=== PATIENT | male | born 1925 | race Caucasian/White ===

== ENCOUNTER → 2017-01-20 | Outpatient (REF) | payer MEDICARE, OTHER ==
[~2017-01-20] MED LIST: /ATOR40TA OR; ACTO45TA OR; ALLO100T OR; AMLO10TA OR; ASPI325T OR; ASPI81TA83 OR; ATEN50TA2 OR; CHLORTHALIDONE OR; CHLORTHALIDONE PO; CLIN300C OR; DIOV320T OR; EYE VITAMIN OR; EYE VITE PO; EYECAP PO; GLIP5TAB77 OR; GLIP5TAB8 PO; GLUC1000 OR; LASI20TA OR; LASI20TA PO; LEVO25TA5 PO; LIPI10TA OR; LISI20TA5 OR; MED FOR GERD PO; METF1000 PO; NORV5TAB PO; OMEP20TA7 OR; PROP120C OR; TRUSOPT OU; VICO5TAB OR; VITAMIN D OR; VITAMIN D PO; XALATAN; [UNRECOGNIZED DRUG - CODE] OR
[2017-01-20 14:26] LABS: MEAN CORPUSCULAR HEMOGLOBIN 28.6 pg (27.0-33.0); MEAN CORPUSCULAR HGB CONC 32.2 g/dl (32.0-36.5); MEAN CORPUSCULAR VOLUME 88.9 fl (80.0-96.0); WHITE BLOOD COUNT 6.2 K/mm3 (4.0-10.0)
[2017-01-20 15:05] LABS: ALBUMIN 3.6 GM/DL (3.2-5.2); ALBUMIN/GLOBULIN RATIO 1.2 (1.00-1.93); BILIRUBIN,TOTAL 0.5 MG/DL (0.2-1.0); CALCIUM LEVEL 10.4 MG/DL (8.8-10.2); CREATININE FOR GFR 1.84 MG/DL (0.70-1.30); FREE T4 0.89 NG/DL (0.76-1.46); GLOMERULAR FILTRATION RATE 37.1 (>35); TOTAL PROTEIN 6.6 GM/DL (6.4-8.2)
[2017-01-20 15:08] LABS: POTASSIUM SERUM 5.2 MEQ/L (3.5-5.1)
== END ==
LOC: M SFHCADAM 07:58
PROVIDERS: ATTEND Physician Assistant
DX: N18.4 Chronic kidney disease, stage 4 (severe) (principal); E03.9 Hypothyroidism, unspecified; E11.65 Type 2 diabetes mellitus with hyperglycemia

== ENCOUNTER 2017-02-06 11:33 | Inpatient (IN) | payer MEDICARE, OTHER ==
[~2017-02-06] VITALS: Ht 182.9 cm; Wt 84.6 kg
[2017-02-06] MEDS ORDERED: TRAD5TAB PO (11:49)
[2017-02-06] MEDS ORDERED: METF500T PO (11:49)
[2017-02-06] MEDS ORDERED: LASI20TA PO (11:49)
[2017-02-06] MEDS ORDERED: NS 1,000 ML IV SCH (12:24)
[2017-02-06 13:35] LABS: EOS # 0.1 K/mm3 (0.0-0.50); EOS % 0.5 % (0.0-3.0); LARGE UNSTAINED CELL # 0.1 K/mm3 (0.0-0.4); LARGE UNSTAINED CELL % 1.2 % (0.0-4.0); LYMPH # 0.9 K/mm3 (1.5-4.5); LYMPH % 6.4 % (24.0-44.0); MEAN CORPUSCULAR HEMOGLOBIN 28.2 pg (27.0-33.0); MEAN CORPUSCULAR HGB CONC 32.5 g/dl (32.0-36.5); MEAN CORPUSCULAR VOLUME 86.7 fl (80.0-96.0); MONO # 0.7 K/mm3 (0.0-0.8); MONO % 6.1 % (0.0-5.0); NEUTROPHILS # 9.7 K/mm3 (1.8-7.7); NEUTROPHILS % 85.8 % (36.0-66.0); PLATELET COUNT, AUTOMATED 222 k/mm3 (150-450); RED CELL DISTRIBUTION WIDTH 12.9 % (11.5-14.5); WHITE BLOOD COUNT 11.3 K/mm3 (4.0-10.0)
[2017-02-06 13:56] LABS: ALBUMIN 3.2 GM/DL (3.2-5.2); ALBUMIN/GLOBULIN RATIO 0.91 (1.00-1.93); ALKALINE PHOSPHATASE 98 U/L (45-117); ALT/SGPT 46 U/L (12-78); ANION GAP 12 MEQ/L (8-16); AST/SGOT 41 U/L (15-37); BILIRUBIN,DIRECT 0.5 MG/DL (0.0-0.2); BILIRUBIN,TOTAL 1.2 MG/DL (0.2-1.0); BLOOD UREA NITROGEN 58 MG/DL (7-18); CALCIUM LEVEL 10.6 MG/DL (8.8-10.2); CARBON DIOXIDE LEVEL 25 MEQ/L (21-32); CHLORIDE LEVEL 95 MEQ/L (98-107); CREATININE FOR GFR 2.49 MG/DL (0.70-1.30); GLOMERULAR FILTRATION RATE 26.1 (>35); GLUCOSE, FASTING 337 MG/DL (83-110); POTASSIUM SERUM 4.4 MEQ/L (3.5-5.1); SODIUM LEVEL 132 MEQ/L (136-145); TOTAL PROTEIN 6.7 GM/DL (6.4-8.2)
--- NOTE | 2017-02-06 14:03 | REP ---
Noncontrast head CT: History: Altered mental status. Findings: Digital lateral lens blocker radiograph is unremarkable. Bone window settings demonstrate an intact bony calvarium. Visualized paranasal sinuses are clear. There is some vascular calcification in the distal carotid arteries bilaterally. On soft tissue window settings there is moderate diffuse cerebral atrophy and periventricular white matter low density consistent with small vessel changes. There is no evidence of acute infarction. 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 No acute cortical infarction or white matter for infarct is seen. No hemorrhage is noted. No extra-axial fluid collection or mass is seen. 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 No acute intracranial abnormality. Signed by Jose Epps MD 02/06/2017 03:13 P
[2017-02-06] MEDS ORDERED: CIPROFLOXACIN 400 MG in APPROPRIATE DILUENT 1 EA IV ONE (14:30)
--- NOTE | 2017-02-06 14:41 | REP ---
PORTABLE CHEST: 02/06/2017. Comparison: 04/12/2014, 12/24/2010. Clinical history: Altered mental status. Findings: EKG leads overlie the chest. There are minor interstitial changes in the bases without acute infiltrate, pleural effusion or parenchymal lung mass. The heart is not enlarged. The aorta is calcified and tortuous but without aneurysm. Airway is intact. No mediastinal or hilar widening. Pulmonary arteries are mildly prominent. There are degenerative changes in the AC and glenohumeral joints. Impression: 1. Some minor basilar fibrotic change without acute infiltrate, effusion or atelectasis. Pulmonary artery hypertension noted likely on the basis of COPD.2. Calcified mildly tortuous aorta without aneurysm. Signed by Omar Hernandez MD 02/06/2017 03:07 P
[2017-02-06] MEDS ORDERED: TYLE500T78 PO (15:12)
[2017-02-06] MEDS ORDERED: VITA-112 PO (15:12)
[2017-02-06] MEDS ORDERED: EYECAP PO (15:12)
[2017-02-06] MEDS ORDERED: [UNRECOGNIZED DRUG - CODE] SC (15:12)
[2017-02-06] MEDS ORDERED: GLIP5TAB15 PO (15:12)
[2017-02-06] MEDS ORDERED: LEVO75TA34 PO (15:12)
[2017-02-06] MEDS ORDERED: VITMTA PO (15:12)
[2017-02-06] MEDS ORDERED: OMEP20CA3 PO (15:12)
[2017-02-06] MEDS ORDERED: ATOR1TAB19 PO (15:12)
[2017-02-06] MEDS ORDERED: ASPI1TAB PO (15:12)
[2017-02-06] MEDS ORDERED: FURO40TA2 PO (15:12)
[2017-02-06] MEDS ORDERED: AMLO2.5T PO (15:12)
[2017-02-06] MEDS ORDERED: DEXTROSE 50% 50 ML SYRINGE IV PRN (15:30)
[2017-02-06] MEDS ORDERED: GLUCAGON FOR INJ 1 MG VIAL (J1610) SC PRN (15:30)
[2017-02-06] MEDS ORDERED: GLUCOSE 4 GM CHEW TABLET PO PRN (15:30)
[2017-02-06 16:10] VITALS: BP 135/74
[2017-02-06] MEDS: NS 1,000 ML IV SCH ×2 (16:27→21:53)
[2017-02-06] MEDS: cefTRIAXone SOD 1 GM in D5W MINI-BAG PLUS 50 ML IV SCH (16:27)
[2017-02-06] MEDS: HumaLOG INSULIN (NovoLOG) PER UNIT SC SCH ×2 (18:00→21:00)
[2017-02-06] MEDS ORDERED: FUROSEMIDE 20 MG TAB PO PRN (19:15)
--- NOTE | 2017-02-06 20:20 | HPE ---
DATE OF ADMISSION: 02/06/2017 REASON FOR ADMISSION: Weakness, urinary tract infection (UTI). PRIMARY CARE PROVIDER: Priscila Mejias. HISTORY OF PRESENT ILLNESS: Patient is an 89-year-old male who presented to the emergency room with his daughter who stated that the patient has been feeling increasingly weak. She last saw him on Thursday. At that time he told her that he had fallen a few weeks ago and has not been steady in his feet. She went to visit him again today. She found him sleeping in his bed, unable to make it to the bathroom. She found a broken lamp in the living room so she assumed that the patient had fallen again. She had helped bringing him out to the car and bringing into the hospital. He is unable to ambulate well. In the emergency room, the patient was found to have an abnormal urinalysis, too many to count WBC, +1 bacteria, cloudy in appearance. The patient's daughter also stated that he has been having increasing urinary frequency. Prior to that, the patient has been independent and not requiring any help and lives alone at home. REVIEW OF SYSTEMS: Unable to obtain. The patient at this time is confused, oriented to self and place but not to time. He denies any pain anywhere but unable to answer specific questions. PAST MEDICAL HISTORY: Significant for a type 2 diabetes, hyperlipidemia, hypothyroidism, gastroesophageal reflux disease (GERD). PAST SURGICAL HISTORY: Significant for inguinal hernia. ALLERGIES: None. HOME MEDICATIONS: - Tylenol 500 as needed for pain - amlodipine 2.5 mg by mouth daily - aspirin 81 mg by mouth daily - atorvastatin 10 mg by mouth daily - Lasix 20 mg by mouth as needed for swelling - glipizide 5 mg by mouth twice a day - Levoxyl 75 mcg by mouth daily - metformin 500 mg by mouth twice a day - omeprazole 20 mg by mouth daily FAMILY HISTORY: Noncontributory. SOCIAL HISTORY: The patient does not smoke or drink. Lives at home alone. PHYSICAL FINDINGS: VITAL SIGNS: Temperature 98.6, pulse 87, respiratory rate 16, blood pressure is 151/101, pulse oximetry 98% on room air. HEENT: Pupils equal, round, reactive to light and accommodation. NECK: Supple. No jugular venous distention (JVD). LUNGS: Clear to auscultation bilaterally. ABDOMEN: Soft, nontender, nondistended. EXTREMITIES: No clubbing, cyanosis or edema. LABORATORY DATA: WBC is 11.3, hemoglobin 14.2, hematocrit 43.8, platelet count 222. Sodium 132, potassium 4.4, chloride 95, BUN 58, creatinine 2.49. Lactic acid 1.9. Troponin 0.02. TSH 2.5. IMAGING: CT of the head was done in the emergency room which showed diffuse moderate atrophy, small vessel changes, vascular calcification, old infarct. No acute abnormalities. Chest x-ray was also ordered in the emergency room which showed some minor basilar fibrotic changes without acute infiltrate, effusion or atelectasis. ASSESSMENT AND PLAN: 1. Increased weakness likely secondary to urinary tract infection. We will continue the patient on ceftriaxone. Await urine cultures. Continue to monitor. Will order physical therapy, occupational therapy. The patient currently lives alone. Per the daughter, the patient has another daughter in [place] who is willing to take her father if he was to need long-term placement. 2. Abnormal urinalysis. Continue ceftriaxone. The patient received first dose in the emergency room. Await urinary cultures. 3. History of hypertension. Continue the patient's home medication. 4. History of diabetes. We will start the patient on insulin sliding scale with Accu-Chek before meals and at bedtime and consistent carbohydrate diet. We will hold the patient's oral medications at this time. 5. History of hyperlipidemia. Continue the patient's atorvastatin 10 mg daily. 6. History of hypothyroidism. Continue levothyroxine 0.075 mg daily. 7. Deep venous thrombosis (DVT) prophylaxis Lovenox 30 mg subcutaneously daily. 8. Acute on chronic kidney disease. The patient's baseline creatinine in December was 1.84, currently is 2.49. We will start the patient on normal saline at a rate of 70 mL an hour and repeat labs in the morning.
[2017-02-06] MEDS: ACETAMINOPHEN TAB 650MG DOSE (2X325MG) PO PRN (21:48)
[2017-02-06] MEDS: ASPIRIN 81 MG ENTERIC TAB PO SCH (21:52)
[2017-02-06] MEDS: OMEPRAZOLE 20 MG CAP PO SCH (21:52)
[2017-02-06] MEDS: ATORVASTATIN 10 MG TAB PO SCH (21:52)
[2017-02-06 22:00] VITALS: BP 143/65
[2017-02-07 04:43] LABS: MEAN CORPUSCULAR HGB CONC 32.2 g/dl (32.0-36.5); MEAN CORPUSCULAR VOLUME 86.9 fl (80.0-96.0); WHITE BLOOD COUNT 12.3 K/mm3 (4.0-10.0)
[2017-02-07 04:58] LABS: ALBUMIN 2.7 GM/DL (3.2-5.2); ALBUMIN/GLOBULIN RATIO 0.68 (1.00-1.93); BILIRUBIN,TOTAL 0.7 MG/DL (0.2-1.0); CALCIUM LEVEL 9.6 MG/DL (8.8-10.2); CREATININE FOR GFR 2.66 MG/DL (0.70-1.30); GLOMERULAR FILTRATION RATE 24.2 (>35); TOTAL PROTEIN 6.7 GM/DL (6.4-8.2)
[2017-02-07 06:00] VITALS: BP 120/74
[2017-02-07] MEDS: LEVOTHYROXINE 0.075 MG TAB (75 MCG) PO SCH (06:31)
[2017-02-07] MEDS: ENOXAPARIN 30 MG/0.3 ML SYR (J1650) SC SCH (08:50)
[2017-02-07] MEDS: OMEPRAZOLE 20 MG CAP PO SCH (08:51)
[2017-02-07] MEDS: ATORVASTATIN 10 MG TAB PO SCH (08:51)
[2017-02-07] MEDS: VITAMIN D 1,000 INTERNATIONAL UNITS TABLET PO SCH (08:51)
[2017-02-07] MEDS: ASPIRIN 81 MG ENTERIC TAB PO SCH (08:51)
[2017-02-07] MEDS: HumaLOG INSULIN (NovoLOG) PER UNIT SC SCH ×4 (08:52→21:00)
[2017-02-07] MEDS: NS 1,000 ML IV SCH ×3 (08:52→23:20)
[2017-02-07] MEDS ORDERED: MULTIVITAMINS/MINERALS THERAP 1 TAB PO SCH (09:00)
[2017-02-07 14:02] VITALS: BP 160/72
[2017-02-07] MEDS: cefTRIAXone SOD 1 GM in D5W MINI-BAG PLUS 50 ML IV SCH (16:28)
[2017-02-07 22:00] VITALS: BP 149/66
--- NOTE | 2017-02-08 01:46 | IPN ---
DATE OF SERVICE: 02/07/2017 [facility] was admitted yesterday with mental status changes and a fall. He was also weak. He had too numerous to count white cells in his urine and was admitted for urinary infection. Though he was not febrile in the emergency room (ER), temperature was 101.7 last night at 10 p.m., but temperature was 99.7 this morning. Other than the sensation that he has to urinate frequently, he is not complaining of any pain, dysuria, cough, shortness of breath, abdominal discomfort. He remains somewhat confused. His medications include Lovenox, vitamin D, multivitamin with minerals, levothyroxine, Humalog insulin coverage, furosemide, ceftriaxone, amlodipine, aspirin, atorvastatin, and omeprazole. On examination, his temperature is 99.7, blood pressure 120/74, pulse 99, respirations 20. He is awake and alert. He is not oriented to time. He is oriented to place and person. His eyes are clear. He does have a bruise with a very shallow laceration about 1 cm in length over his right eyebrow. Mucous membranes are slightly dry. There are no neck masses, tenderness or adenopathy. No carotid bruits. His lungs are clear. His heart has a regular rhythm. I am not hearing any murmur, click or gallop. Abdomen is soft, nontender without any masses or organomegaly. Bowel sounds are active. There is some trace pretibial edema. Labs done today show a white count of 12,000, hemoglobin 13, BUN of 63, creatinine 2.66. It appears that his baseline is approximately 27 and 1.8. Glucose was 278. CPK-MB elevated at 4.05, but his CPK was normal at 79. Troponin was less than 0.02. Blood culture is showing gram-positive cocci in clusters, and this is only one of his two blood cultures. His urine culture is pending. ASSESSMENT: 89-year-old gentleman with a urinary tract infection (UTI) and mental status changes and he has chronic renal insufficiency, but his renal functions are worse than before. He is not evidencing any pneumonia. His vitals are stable and his temperature has come down. PLAN: We are going to up his intravenous (IV) fluids, discontinue his diuretic which he was continued on. Continue his current antibiotics. Will change depending upon results of his urine and blood cultures. He is on insulin coverage. MTDD
[2017-02-08] MEDS: LEVOTHYROXINE 0.075 MG TAB (75 MCG) PO SCH (05:39)
[2017-02-08 06:00] VITALS: BP 132/63
[2017-02-08 06:12] LABS: MEAN CORPUSCULAR HEMOGLOBIN 28.6 pg (27.0-33.0); MEAN CORPUSCULAR HGB CONC 33.1 g/dl (32.0-36.5); MEAN CORPUSCULAR VOLUME 86.4 fl (80.0-96.0); RED CELL DISTRIBUTION WIDTH 13.1 % (11.5-14.5); WHITE BLOOD COUNT 8.7 K/mm3 (4.0-10.0)
[2017-02-08 06:34] LABS: ALBUMIN 2.1 GM/DL (3.2-5.2); ALBUMIN/GLOBULIN RATIO 0.64 (1.00-1.93); BILIRUBIN,TOTAL 0.4 MG/DL (0.2-1.0); CALCIUM LEVEL 9.6 MG/DL (8.8-10.2); CREATININE FOR GFR 2.53 MG/DL (0.70-1.30); GLOMERULAR FILTRATION RATE 25.7 (>35); POTASSIUM SERUM 3.5 MEQ/L (3.5-5.1); TOTAL PROTEIN 5.4 GM/DL (6.4-8.2)
[2017-02-08] MEDS: HumaLOG INSULIN (NovoLOG) PER UNIT SC SCH ×4 (08:54→20:39)
[2017-02-08] MEDS: ENOXAPARIN 30 MG/0.3 ML SYR (J1650) SC SCH (08:54)
[2017-02-08] MEDS: ASPIRIN 81 MG ENTERIC TAB PO SCH (08:54)
[2017-02-08] MEDS: ATORVASTATIN 10 MG TAB PO SCH (08:54)
[2017-02-08] MEDS: OMEPRAZOLE 20 MG CAP PO SCH (08:55)
[2017-02-08] MEDS: NS 1,000 ML IV SCH ×2 (08:55→17:39)
[2017-02-08] MEDS: VITAMIN D 1,000 INTERNATIONAL UNITS TABLET PO SCH (08:55)
--- NOTE | 2017-02-08 09:01 | ECGEPIP ---
Stationary ECG Study [facility] - ED Test Date: 2017-02-06 Pat Name: TOVA RAMIREZ Department: Room: - Gender: [employer] Consultant: darci : [id number] Requested By: Marleen Mujica Order Number: [id number] Reading MD: Marleen Mujica Measurements Intervals [place] Rate: 82 P: 59 ME: 159 QRS: 7 QRSD: 84 T: 59 QT: 328 QTc: 385 Interpretive Statements SINUS RHYTHM LOW QRS VOLTAGE LIMB LEADS NONSPECIFIC ST T WAVE CHANGES 04/12/14 RATE DECREASED Electronically Signed On 02-08-2017 9:01:40 EDT by Marleen Mujica
[2017-02-08 14:00] VITALS: BP 132/63
[2017-02-08] MEDS: cefTRIAXone SOD 1 GM in D5W MINI-BAG PLUS 50 ML IV SCH (17:39)
[2017-02-08] MEDS: TAMSULOSIN 0.4 MG CAP PO SCH (20:43)
[2017-02-08 22:00] VITALS: BP 132/58
[2017-02-09] MEDS: NS 1,000 ML IV SCH (02:43)
[2017-02-09] MEDS: LEVOTHYROXINE 0.075 MG TAB (75 MCG) PO SCH (05:35)
[2017-02-09 06:00] VITALS: BP 168/78
[2017-02-09 07:09] LABS: MEAN CORPUSCULAR HEMOGLOBIN 28.1 pg (27.0-33.0); MEAN CORPUSCULAR VOLUME 87.9 fl (80.0-96.0); RED CELL DISTRIBUTION WIDTH 13.2 % (11.5-14.5); WHITE BLOOD COUNT 6.3 K/mm3 (4.0-10.0)
[2017-02-09 07:35] LABS: ALBUMIN 2.1 GM/DL (3.2-5.2); ALBUMIN/GLOBULIN RATIO 0.64 (1.00-1.93); BILIRUBIN,TOTAL 0.3 MG/DL (0.2-1.0); CALCIUM LEVEL 9.7 MG/DL (8.8-10.2); CREATININE FOR GFR 1.98 MG/DL (0.70-1.30); GLOMERULAR FILTRATION RATE 34.1 (>35); POTASSIUM SERUM 3.6 MEQ/L (3.5-5.1); TOTAL PROTEIN 5.4 GM/DL (6.4-8.2)
--- NOTE | 2017-02-09 08:06 | IPNPDOC ---
Subjective Date Seen The patient was seen on 02/09/17. Subjective Chief Complaint/HPI The patient is a 89-year-old male admitted with a reason for visit of Weakness. Events since last encounter Eating and drinking well. Denies c/o. Nursing noting improvement in appetite and strength. Per nursing staff, daughters plan on taking him home to [place]. Constitutional: Denies: Chills, Fever, Night Sweats ENT: Denies: Dysphagia, Ear Pain, Head Aches Skin: Denies: Breakdown, Lesions, Rash Pulmonary: Denies: Cough, Dyspnea Cardiovascular: Denies: Chest Pain, Lt Headedness, Orthopnea, Palpitations, Paroxysmal Noc. Dyspnea Gastrointestinal: Denies: Abdominal Pain, Constipation, Diarrhea, Nausea, Vomiting Genitourinary: Denies: Dysuria, Frequency, Incontinence, Retention Objective Physical Examination General Exam: Positive: Alert, No Acute Distress Neck Exam: Positive: Supple, Negative: JVD, thyromegaly Chest Exam: Positive: Clear to auscultation, Normal air movement Heart Exam: Positive: Normal S1, Normal S2, Rate Normal, Regular Rhythm, Negative: Murmurs, Rubs Abdomen Exam: Positive: Normal bowel sounds, Soft, Negative: Hepatospenomegaly, Tenderness Extremity Exam: Positive: Normal pulses, Negative: Clubbing, Cyanosis, Edema Neuro Exam: Positive: Cranial Nerves 3-12 NL, Normal Gait, Normal Speech, Reflexes 2+ Psych Exam: Positive: Mental status NL, Mood NL, Oriented x 3 Assessment /Plan Problems (1) Dehydration Status: Acute Response to Treatment: Improving Problem Text: Tolerating po well. DC IVF. Diuretic currently on HOLD. Monitor I /O. (2) Urinary tract infection Status: Acute Problem Text: Urine cx negative. Bl cx x 1 + for staph epidermidis. Probable contaminant. (3) Acute renal failure Status: Acute Response to Treatment: Improving Problem Specific Plan: Monitor Clinically Problem Text: Cr. 1.98, appears to be close to baseline (4) Weakness Status: Acute Problem Specific Plan: Consult Specialist Problem Text: PT consulted (5) Diabetes mellitus Status: Chronic Response to Treatment: Stable (6) HTN (hypertension) Status: Chronic Response to Treatment: Stable (7) Hypothyroidism Status: Chronic Response to Treatment: Stable (8) GERD (gastroesophageal reflux disease) Status: Chronic Response to Treatment: Stable (9) Hyperlipidemia Status: Chronic Response to Treatment: Stable Plan/VTE VTE Prophylaxis Ordered?: Yes (Lovenox) Plan/Urinary Catheter Reason for insertion/continuin: Acute obstruct/retention Plan Family Medicine Attending Note: Patient seen and examined - I d/w Iesha Gomez and I agree with her note above. Patient was seen by PT today and they recommend continuing PT to improve strength prior to discharge. I had a long discussion with family about discharge planning - they are still unsure about whether he wants to go home or move to [place] with his daughter, and they will continue to discuss this. I also discussed option of Assisted Living. (KES) VS, I&O, 24H, Fishbone Vital Signs/I&O Vital Signs Date Time Temp Pulse Resp B/P Pulse Ox O2 Delivery O2 Flow Rate FiO2 02/09/17 06:00 97.9 52 20 168/78 98 Room Air I&O- Last 24 Hours up to 6 AM 02/09/17 06:00 Intake Total 3020 ml Output Total 3325 ml Balance -305 ml Laboratory Data 24H LABS Laboratory Tests 2 02/08/17 11:57: Bedside Glucose (Misc Panel) 445H 02/08/17 17:06: Bedside Glucose (Misc Panel) 227H 02/08/17 20:20: Bedside Glucose (Misc Panel) 202H 02/09/17 06:28: Blood Urea Nitrogen 55H, Creatinine 1.98H, Sodium Level 140, Potassium Level 3.6 , Chloride Level 106, Carbon Dioxide Level 26, Calcium Level 9.7, Aspartate Amino Transf (AST/SGOT) 50H, Alanine Aminotransferase (ALT/SGPT) 56, Alkaline Phosphatase 89, Total Bilirubin 0.3, Total Protein 5.4L, Albumin 2.1L, Albumin/ Globulin Ratio 0.64L, Anion Gap 8, Glomerular Filtration Rate 34.1L CBC/BMP Laboratory Tests 02/09/17 06:28 Calcium Level 9.7, Aspartate Amino Transf (AST/SGOT) 50 H, Alanine Aminotransferase (ALT/SGPT) 56, Alkaline Phosphatase 89, Total Bilirubin 0.3, Total Protein 5.4 L, Albumin 2.1 L, Red Blood Count 4.19 L, Mean Corpuscular Volume 87.9, Mean Corpuscular Hemoglobin 28.1, Mean Corpuscular Hemoglobin Concent 32.0, Red Cell Distribution Width 13.2 Microbiology Microbiology 02/06/17 Blood Culture - Preliminary, Resulted No Growth after 48 hours. All Specime... 02/06/17 Blood Culture - Final, Complete Staphylococcus Epidermidis 02/06/17 Urine Culture - Final, Complete Iesha Gomez Feb 09, 2017 08:05 HANNAH SOSA MD Feb 09, 2017 15:42
[2017-02-09] MEDS: ENOXAPARIN 30 MG/0.3 ML SYR (J1650) SC SCH (09:10)
[2017-02-09] MEDS: HumaLOG INSULIN (NovoLOG) PER UNIT SC SCH ×4 (09:10→21:43)
[2017-02-09] MEDS: OMEPRAZOLE 20 MG CAP PO SCH (09:11)
[2017-02-09] MEDS: ATORVASTATIN 10 MG TAB PO SCH (09:11)
[2017-02-09] MEDS: VITAMIN D 1,000 INTERNATIONAL UNITS TABLET PO SCH (09:11)
[2017-02-09] MEDS: ASPIRIN 81 MG ENTERIC TAB PO SCH (09:11)
--- NOTE | 2017-02-09 11:08 | IPN ---
DATE OF VISIT: 02/08/2017 The patient is seen today and 4 Love. Major change during the night as he was straight catheterized. I am told that he might have gotten as much as 2 liters when they catheterized him. He denies any fevers, chills or sweats. Denies cough or shortness of breath, chest pains or palpitations. Denies nausea, vomiting or abdominal pain. He does have some knee pain. He has some chronic problems with his left knee, before he has gotten some injections in that knee without any benefit. His family indicates to me that he was quite independent until several weeks ago and then very suddenly became quite a bit less functional. The family is interested in taking him down to [place] when he is due to get out of the hospital. CURRENT MEDICATIONS: Enoxaparin, Vitamin D, Levothyroxine, he is on a sliding scale insulin, Ceftriaxone, Amlodipine, Aspirin, Atorvastatin, Omeprazole. He stopped his Potassium, Lasix yesterday. PHYSICAL EXAMINATION VITAL SIGNS: On examination his temperature is 98.8, pulse 75 and regular, blood pressure 132/62, O2 saturation 93% on room air. GENERAL: He is awake and alert, appears somewhat stronger than yesterday. LUNGS: His lungs sound clear. HEART: His heart has a regular rhythm. I am not hearing any murmur, click or gallop. NECK: Neck is without any masses, tenderness or adenopathy. There is no carotid bruits. ABDOMEN: Abdomen is soft and nontender without any masses or organomegaly. Bowel sounds are active. EXTREMITIES: There is no edema or calf tenderness. His urine culture was reported as being contaminated. LABORATORY DATA: His total white count is 8700 which is down. Hemoglobin is 11.3, BUN of 63, creatinine 2.53 which is somewhat unchanged. Sodium 140, potassium 3.5, blood sugar 225. ASSESSMENT: 1. Urinary tract infection. 2. Acute on chronic renal insufficiency. 3. Diabetes. 4. Positive blood culture for gram-negative cocci. 5. Arthritis in the knees with impaired ambulation. PLAN: Going to continue his intravenous (IV) fluids. His diuretic was discontinued yesterday. Continue on his current antibiotics. We are still awaiting his blood culture result. Will remain on the insulin coverage. We ordered physical therapy assessment for him. We put him on an alpha-kelly today for his urinary retention. We will catheterize him intermittently. Hopefully he will be able to rehab such that he can be discharged directly to home but he may benefit from subacute rehabilitation if he remains significantly weak. It sounds as if the offer from family members to take him down south is somewhat time limited and in that they plan to go back to [place] next week. FOREIGN
[2017-02-09 14:00] VITALS: BP 144/60
[2017-02-09] MEDS: TAMSULOSIN 0.4 MG CAP PO SCH (21:42)
[2017-02-09 22:00] VITALS: BP 150/60
[2017-02-10 06:00] VITALS: BP 156/68
[2017-02-10] MEDS: LEVOTHYROXINE 0.075 MG TAB (75 MCG) PO SCH (06:09)
[2017-02-10 07:04] LABS: MEAN CORPUSCULAR HEMOGLOBIN 27.6 pg (27.0-33.0); RED CELL DISTRIBUTION WIDTH 13.1 % (11.5-14.5); WHITE BLOOD COUNT 5.7 K/mm3 (4.0-10.0)
[2017-02-10 07:19] LABS: ALBUMIN/GLOBULIN RATIO 0.63 (1.00-1.93); BILIRUBIN,TOTAL 0.3 MG/DL (0.2-1.0); CREATININE FOR GFR 1.88 MG/DL (0.70-1.30); GLOMERULAR FILTRATION RATE 36.1 (>35); POTASSIUM SERUM 3.7 MEQ/L (3.5-5.1); TOTAL PROTEIN 5.2 GM/DL (6.4-8.2)
[2017-02-10] MEDS: HumaLOG INSULIN (NovoLOG) PER UNIT SC SCH ×4 (08:08→21:40)
[2017-02-10] MEDS: ENOXAPARIN 30 MG/0.3 ML SYR (J1650) SC SCH (08:08)
[2017-02-10] MEDS: OMEPRAZOLE 20 MG CAP PO SCH (08:09)
[2017-02-10] MEDS: ASPIRIN 81 MG ENTERIC TAB PO SCH (08:09)
[2017-02-10] MEDS: ATORVASTATIN 10 MG TAB PO SCH (08:09)
[2017-02-10] MEDS: VITAMIN D 1,000 INTERNATIONAL UNITS TABLET PO SCH (08:09)
--- NOTE | 2017-02-10 08:47 | IPNPDOC ---
Subjective Date Seen The patient was seen on 02/10/17. Subjective Chief Complaint/HPI The patient is a 89-year-old male admitted with a reason for visit of Weakness. Events since last encounter Continues to improve. Working with PT for strength/safety/ DC disposition is still unclear. Constitutional: Denies: Chills, Fever, Night Sweats Skin: Denies: Breakdown, Lesions, Rash Pulmonary: Denies: Cough, Dyspnea Cardiovascular: Denies: Chest Pain, Lt Headedness, Orthopnea, Palpitations, Paroxysmal Noc. Dyspnea Gastrointestinal: Denies: Abdominal Pain, Constipation, Diarrhea, Nausea, Vomiting Genitourinary: Reports: Retention (Warner), Denies: Dysuria, Frequency, Incontinence Objective Physical Examination General Exam: Positive: Alert, No Acute Distress Neck Exam: Positive: Supple, Negative: JVD, thyromegaly Chest Exam: Positive: Clear to auscultation, Normal air movement Heart Exam: Positive: Normal S1, Normal S2, Rate Normal, Regular Rhythm, Negative: Murmurs, Rubs Abdomen Exam: Positive: Normal bowel sounds, Soft, Negative: Hepatospenomegaly, Tenderness Extremity Exam: Positive: Normal pulses, Negative: Clubbing, Cyanosis, Edema Neuro Exam: Positive: Cranial Nerves 3-12 NL, Normal Gait, Normal Speech, Reflexes 2+ Psych Exam: Positive: Mental status NL, Mood NL, Oriented x 3 Assessment /Plan Problems (1) Urinary retention Status: Acute Problem Text: Warner placed with 2500 ml urine output. Warner should remain and f /u with Urology as an outpatient. (2) Urinary tract infection Status: Acute Problem Text: Urine cx negative. Bl cx x 1 + for staph epidermidis. Probable contaminant. (3) Weakness Status: Acute Problem Specific Plan: Consult Specialist Problem Text: PT consulted (4) Diabetes mellitus Status: Chronic Response to Treatment: Stable (5) HTN (hypertension) Status: Chronic Response to Treatment: Stable (6) Hypothyroidism Status: Chronic Response to Treatment: Stable (7) GERD (gastroesophageal reflux disease) Status: Chronic Response to Treatment: Stable (8) Hyperlipidemia Status: Chronic Response to Treatment: Stable (9) Dehydration Status: Resolved Response to Treatment: Improving Problem Text: Tolerating po well. DC IVF. Diuretic currently on HOLD. Monitor I /O. (10) Acute renal failure Status: Resolved Response to Treatment: Improving Problem Specific Plan: Monitor Clinically Problem Text: Cr. 1.98, appears to be close to baseline (11) Metabolic encephalopathy Status: Acute Problem Text: secondary to UTI. mentation improving. (12) Abnormal grief reaction Status: Chronic Problem Text: Family notes that patient was previously independent with all of his ADLs, including walking down to the cellar to do his own laundry. Patient feels that he started to decline after his . He states that he has daily depressed mood. He has had thoughts of hurting himself, however "didn't have the guts to do anything about it." He denies any current thoughts of self- harm. He is willing to try medication to help with his decreased mood. He denies decreased appetite, however endorses hypersomnolence. - start effexor XR (13) Protein-calorie malnutrition, moderate Status: Chronic Problem Text: Pt does report good appetite. No history of liver disease. Normal BMI. Albumin is 2.0. -Prealbumin -INR -Dietary consult Plan/VTE VTE Prophylaxis Ordered?: Yes (Lovenox) Plan/Urinary Catheter Reason for insertion/continuin: Acute obstruct/retention Plan Attending note: I saw and evaluated the patient, and agree the plan of care as discussed and documented above by Belem Gomez. Additional comments are as follows: Decline from patient's baseline, may be secondary to obstructive uropathy and depression. Patient states that he has been significantly depressed since the passing of his 3 years ago. He denies any current thoughts of self-harm. He is amenable to attempting treatment. Given history of hypersomnolence, we'll try Effexor. Per family, it was recommended the patient be seen by urology due to rising PSA. However, patient declined. I indicated that if he did have a developing prostate cancer, there are nonsurgical options that he could pursue. In the meantime, I've added finasteride in addition to his Flomax. Family is inclined to take him home to [place]. He currently shows no signs of postobstructive diuresis. Cultures are negative. Could begin planning for discharge home with family pending follow-up to urology, as the patient currently has a catheter in place. Given his significant obstruction on presentation, it may be foote to keep the Warner in until the patient is seen by urology, as documented by Beelm Gomez. Arsh Jimenez MD VS, I&O, 24H, Fishbone Vital Signs/I&O Vital Signs Date Time Temp Pulse Resp B/P Pulse Ox O2 Delivery O2 Flow Rate FiO2 02/10/17 08:09 77 156/68 02/10/17 06:00 98.4 18 95 Room Air I&O- Last 24 Hours up to 6 AM 02/10/17 06:00 Intake Total 3220 ml Output Total 3400 ml Balance -180 ml Laboratory Data 24H LABS Laboratory Tests 2 02/09/17 11:28: Bedside Glucose (Misc Panel) 285H 02/09/17 16:25: Bedside Glucose (Misc Panel) 262H 02/09/17 20:44: Bedside Glucose (Misc Panel) 265H 02/10/17 05:56: Blood Urea Nitrogen 39H, Creatinine 1.88H, Sodium Level 137, Potassium Level 3.7 , Chloride Level 104, Carbon Dioxide Level 24, Calcium Level 9.0, Aspartate Amino Transf (AST/SGOT) 38H, Alanine Aminotransferase (ALT/SGPT) 54, Alkaline Phosphatase 81, Total Bilirubin 0.3, Total Protein 5.2L, Albumin 2.0L, Albumin/ Globulin Ratio 0.63L, Anion Gap 9, Glomerular Filtration Rate 36.1 CBC/BMP Laboratory Tests 02/10/17 05:56 Calcium Level 9.0, Aspartate Amino Transf (AST/SGOT) 38 H, Alanine Aminotransferase (ALT/SGPT) 54, Alkaline Phosphatase 81, Total Bilirubin 0.3, Total Protein 5.2 L, Albumin 2.0 L, Red Blood Count 4.05 L, Mean Corpuscular Volume 86.0, Mean Corpuscular Hemoglobin 27.6, Mean Corpuscular Hemoglobin Concent 32.0, Red Cell Distribution Width 13.1 Microbiology Microbiology 02/06/17 Blood Culture - Preliminary, Resulted No Growth after 72 hours. All specime... 02/06/17 Blood Culture - Final, Complete Staphylococcus Epidermidis 02/06/17 Urine Culture - Final, Complete Iesha Gomez [employer] Feb 10, 2017 08:47 ARSH JIMENEZ MD Feb 10, 2017 16:37
[2017-02-10 14:00] VITALS: BP 172/74
[2017-02-10 17:09] LABS: INR 1.06
[2017-02-10] MEDS: TAMSULOSIN 0.4 MG CAP PO SCH (21:43)
[2017-02-10] MEDS: FINASTERIDE 5 MG TAB PO SCH (21:43)
[2017-02-10 22:00] VITALS: BP 138/74
[2017-02-11] MEDS: ACETAMINOPHEN TAB 650MG DOSE (2X325MG) PO PRN ×2 (00:49→21:42)
[2017-02-11] MEDS: LEVOTHYROXINE 0.075 MG TAB (75 MCG) PO SCH (05:54)
[2017-02-11 06:00] VITALS: BP 126/72
[2017-02-11 06:56] LABS: MEAN CORPUSCULAR HEMOGLOBIN 27.6 pg (27.0-33.0); MEAN CORPUSCULAR HGB CONC 32.6 g/dl (32.0-36.5); MEAN CORPUSCULAR VOLUME 84.6 fl (80.0-96.0); RED CELL DISTRIBUTION WIDTH 13.1 % (11.5-14.5); WHITE BLOOD COUNT 5.9 K/mm3 (4.0-10.0)
[2017-02-11 07:13] LABS: ALBUMIN 2.2 GM/DL (3.2-5.2); ALBUMIN/GLOBULIN RATIO 0.69 (1.00-1.93); BILIRUBIN,TOTAL 0.4 MG/DL (0.2-1.0); CALCIUM LEVEL 9.6 MG/DL (8.8-10.2); CREATININE FOR GFR 1.87 MG/DL (0.70-1.30); GLOMERULAR FILTRATION RATE 36.4 (>35); POTASSIUM SERUM 3.8 MEQ/L (3.5-5.1); TOTAL PROTEIN 5.4 GM/DL (6.4-8.2)
[2017-02-11] MEDS: HumaLOG INSULIN (NovoLOG) PER UNIT SC SCH ×4 (08:58→21:42)
[2017-02-11] MEDS: VENLAFAXINE **XR** 37.5 MG CAPSULE PO SCH (08:59)
[2017-02-11] MEDS: ENOXAPARIN 30 MG/0.3 ML SYR (J1650) SC SCH (08:59)
[2017-02-11] MEDS: ATORVASTATIN 10 MG TAB PO SCH (08:59)
[2017-02-11] MEDS: ASPIRIN 81 MG ENTERIC TAB PO SCH (08:59)
[2017-02-11] MEDS: OMEPRAZOLE 20 MG CAP PO SCH (08:59)
[2017-02-11] MEDS: VITAMIN D 1,000 INTERNATIONAL UNITS TABLET PO SCH (08:59)
--- NOTE | 2017-02-11 11:20 | DSES ---
SNF FACILITY SUMMARY: SNF DATE OF ADMISSION: 02/06/2017 DATE OF SNF: 02/11/2017 PRIMARY CARE PROVIDER: Priscila Mejias. ATTENDING: Dr. Chantale Kumar HISTORY: This is a 89-year-old male who presented to [facility] emergency room with increasing and progressive weakness. He was found sleeping in his bed unable to make it to the bathroom, a broken lamp in the living room. Apparently the patient had reported some falls recently and she attributed this to possibly related to another fall. She had help bringing him out to the car and bringing him into the hospital as he was unable to ambulate well. He was found to have abnormal urinalysis with bacteria. The patient's daughter also noted increased urinary frequency. Recently, he was admitted to the hospital for increased weakness likely secondary to urinary tract infection and falls. During hospitalization, he has remained medically stable. He was found to have urinary retention with a Warner catheter placed resulting in 2500 mL of urine output. The recommendation is that the Warner should be remained intact until he is seen by urology as an outpatient. Urine culture was negative. Blood culture was positive times one for Staphylococcus epidermidis felt likely to be secondary to contamination. On admission, he was given a dose of ceftriaxone secondary to presumed urinary tract infection. This was discontinued on the after the patient received a total of three doses as his urine culture returned negative. CT of the head in the emergency room was without any acute changes. Chest x-ray also was without any acute changes. He has been seen by physical therapy who, at this time, feel in order for him to have a safe discharge, he would need 24-hour care or rehabilitation facility. Patient family services and physical therapy plan on meeting with the family today. He has a daughter locally. He also has a daughter in [place]. There is discussion of whether or not he will either go into a rehabilitation facility here or [place] or have 24-hour care arranged at the home of his daughter in [place]. DISCHARGE DIAGNOSES: Include: Urinary retention. Weakness. Falls Diabetes mellitus type 2. Hypertension. Dehydration. Acute renal failure. Abnormal grief reaction with ongoing depression associated with his 's passing. Moderate protein calorie malnutrition. Discharge medication and plan will be summarized at the time of discharge from the hospital.
[2017-02-11 14:00] VITALS: BP 164/69
[2017-02-11] MEDS: glipiZIDE (GLUCOTROL) 5 MG TAB PO SCH (17:40)
[2017-02-11] MEDS: FINASTERIDE 5 MG TAB PO SCH (21:40)
[2017-02-11] MEDS: TAMSULOSIN 0.4 MG CAP PO SCH (21:40)
[2017-02-11 22:00] VITALS: BP 157/72
[2017-02-12] MEDS: LEVOTHYROXINE 0.075 MG TAB (75 MCG) PO SCH (05:30)
[2017-02-12 05:31] LABS: MEAN CORPUSCULAR HEMOGLOBIN 27.3 pg (27.0-33.0); MEAN CORPUSCULAR VOLUME 85.2 fl (80.0-96.0); RED CELL DISTRIBUTION WIDTH 13.1 % (11.5-14.5); WHITE BLOOD COUNT 6.5 K/mm3 (4.0-10.0)
[2017-02-12 06:00] VITALS: BP 161/68
[2017-02-12 06:01] LABS: ALBUMIN 2.2 GM/DL (3.2-5.2); ALBUMIN/GLOBULIN RATIO 0.69 (1.00-1.93); BILIRUBIN,TOTAL 0.3 MG/DL (0.2-1.0); CALCIUM LEVEL 8.9 MG/DL (8.8-10.2); CREATININE FOR GFR 1.56 MG/DL (0.70-1.30); GLOMERULAR FILTRATION RATE 44.8 (>35); POTASSIUM SERUM 3.6 MEQ/L (3.5-5.1); TOTAL PROTEIN 5.4 GM/DL (6.4-8.2)
[2017-02-12] MEDS: HumaLOG INSULIN (NovoLOG) PER UNIT SC SCH ×4 (07:47→21:10)
[2017-02-12] MEDS: ASPIRIN 81 MG ENTERIC TAB PO SCH (07:48)
[2017-02-12] MEDS: glipiZIDE (GLUCOTROL) 5 MG TAB PO SCH ×2 (07:48→17:36)
[2017-02-12] MEDS: VITAMIN D 1,000 INTERNATIONAL UNITS TABLET PO SCH (07:49)
[2017-02-12] MEDS: VENLAFAXINE **XR** 37.5 MG CAPSULE PO SCH (07:49)
[2017-02-12] MEDS: OMEPRAZOLE 20 MG CAP PO SCH (07:49)
[2017-02-12] MEDS: ATORVASTATIN 10 MG TAB PO SCH (07:49)
[2017-02-12] MEDS: ENOXAPARIN 30 MG/0.3 ML SYR (J1650) SC SCH (07:51)
[2017-02-12] MEDS: ACETAMINOPHEN TAB 650MG DOSE (2X325MG) PO PRN (21:09)
[2017-02-12] MEDS: FINASTERIDE 5 MG TAB PO SCH (21:09)
[2017-02-12] MEDS: TAMSULOSIN 0.4 MG CAP PO SCH (21:09)
[2017-02-13 05:35] VITALS: BP 176/68
[2017-02-13] MEDS: LEVOTHYROXINE 0.075 MG TAB (75 MCG) PO SCH (05:39)
[2017-02-13 06:29] LABS: MEAN CORPUSCULAR HEMOGLOBIN 28.2 pg (27.0-33.0); MEAN CORPUSCULAR HGB CONC 33.7 g/dl (32.0-36.5); MEAN CORPUSCULAR VOLUME 83.8 fl (80.0-96.0); RED CELL DISTRIBUTION WIDTH 13.1 % (11.5-14.5); WHITE BLOOD COUNT 6.4 K/mm3 (4.0-10.0)
[2017-02-13 06:58] LABS: ALBUMIN 2.4 GM/DL (3.2-5.2); ALBUMIN/GLOBULIN RATIO 0.73 (1.00-1.93); BILIRUBIN,TOTAL 0.4 MG/DL (0.2-1.0); CREATININE FOR GFR 1.49 MG/DL (0.70-1.30); GLOMERULAR FILTRATION RATE 47.3 (>35); POTASSIUM SERUM 3.8 MEQ/L (3.5-5.1); TOTAL PROTEIN 5.7 GM/DL (6.4-8.2)
[2017-02-13] MEDS: ENOXAPARIN 30 MG/0.3 ML SYR (J1650) SC SCH (09:27)
[2017-02-13] MEDS: ASPIRIN 81 MG ENTERIC TAB PO SCH (09:28)
[2017-02-13] MEDS: glipiZIDE (GLUCOTROL) 5 MG TAB PO SCH (09:28)
[2017-02-13] MEDS: HumaLOG INSULIN (NovoLOG) PER UNIT SC SCH ×2 (09:28→12:14)
[2017-02-13] MEDS: VENLAFAXINE **XR** 37.5 MG CAPSULE PO SCH (09:28)
[2017-02-13] MEDS: ATORVASTATIN 10 MG TAB PO SCH (09:28)
[2017-02-13] MEDS: OMEPRAZOLE 20 MG CAP PO SCH (09:28)
[2017-02-13] MEDS: VITAMIN D 1,000 INTERNATIONAL UNITS TABLET PO SCH (09:28)
[2017-02-13 09:29] VITALS: BP 176/68
[2017-02-13] MEDS ORDERED: FINA5TAB2 PO (10:26)
[2017-02-13] MEDS ORDERED: VENL37CA PO (10:26)
[2017-02-13] MEDS ORDERED: FLOM5CAP PO (10:26)
--- NOTE | 2017-02-13 10:49 | DSES ---
DATE OF ADMISSION: 02/06/2017 DATE OF DISCHARGE: This is an addendum to a previously dictated discharge summary: The patient has remained medically stable since he was placed group home facility (SNF) status on 02/11/2017. He will be discharged to short term rehabilitation at [facility] today, 02/13/2017. DISCHARGE DIAGNOSES: Remain the same. DISCHARGE MEDICATIONS: - finasteride 5 mg by mouth daily - Flomax 0.4 mg by mouth daily - venlafaxine 37.5 mg by mouth daily - acetaminophen 1000 mg by mouth every 6 hours as needed for pain - amlodipine 2.5 mg by mouth daily - aspirin 81 mg by mouth daily - atorvastatin 10 mg by mouth daily - vitamin D 1000 units by mouth daily - glipizide 5 mg by mouth twice a day - Levoxyl 75 mcg by mouth daily - multivitamin one tablet by mouth daily - eye vitamin one tablet by mouth daily - omeprazole 20 mg by mouth daily DISCHARGE PLAN: Will be to followup with Dr. Harper at [facility].
== END 2017-02-13 12:55 | DRG 689 ==
LOC: M ED 13:44 → M ED INP 15:09 → M MSPAV 16:05
PROVIDERS: ADMIT Internal Medicine; ATTEND Family Medicine
DX: N39.0 Urinary tract infection, site not specified (principal); G93.41 Metabolic encephalopathy; N17.9 Acute kidney failure, unspecified; E44.0 Moderate protein-calorie malnutrition; R29.6 Repeated falls; R53.1 Weakness; E03.9 Hypothyroidism, unspecified; B95.7 Other staphylococcus as the cause of diseases classified elsewhere; N18.9 Chronic kidney disease, unspecified; M17.0 Bilateral primary osteoarthritis of knee; R33.9 Retention of urine, unspecified; F32.9 Major depressive disorder, single episode, unspecified; E11.9 Type 2 diabetes mellitus without complications; E78.5 Hyperlipidemia, unspecified; K21.9 Gastro-esophageal reflux disease without esophagitis; Z79.82 Long term (current) use of aspirin; Z79.84 Long term (current) use of oral hypoglycemic drugs

== ENCOUNTER → 2017-02-16 | Outpatient (REF) ==
[~2017-02-16] MED LIST changes: +AMLO2.5T PO; +ASPI1TAB PO; +ATOR1TAB19 PO; +FINA5TAB2 PO; +FLOM5CAP PO; +FURO40TA2 PO; +GLIP5TAB15 PO; +LEVO75TA34 PO; +METF500T PO; +OMEP20CA3 PO; +TRAD5TAB PO; +TYLE500T78 PO; +VENL37CA PO; +VITA-112 PO; +VITMTA PO; +[UNRECOGNIZED DRUG - CODE] SC
[2017-02-16 08:19] LABS: MEAN CORPUSCULAR HGB CONC 32.9 g/dl (32.0-36.5); MEAN CORPUSCULAR VOLUME 85.1 fl (80.0-96.0); WHITE BLOOD COUNT 7.9 K/mm3 (4.0-10.0)
[2017-02-16 08:43] LABS: CALCIUM LEVEL 9.2 MG/DL (8.8-10.2); CREATININE FOR GFR 1.6 MG/DL (0.70-1.30); GLOMERULAR FILTRATION RATE 43.5 (>35); POTASSIUM SERUM 4.7 MEQ/L (3.5-5.1)
== END ==
LOC: SKLAB3 12:46
PROVIDERS: ATTEND Internal Medicine
DX: E11.9 Type 2 diabetes mellitus without complications (principal)

== ENCOUNTER → 2017-02-23 | Outpatient (REF) ==
[2017-02-23 10:14] LABS: CALCIUM LEVEL 10.1 MG/DL (8.8-10.2); CREATININE FOR GFR 2.3 MG/DL (0.70-1.30); GLOMERULAR FILTRATION RATE 28.6 (>35); POTASSIUM SERUM 5.1 MEQ/L (3.5-5.1)
== END ==
LOC: SKLAB3 08:00
PROVIDERS: ATTEND Internal Medicine
DX: I10 Essential (primary) hypertension (principal); E11.9 Type 2 diabetes mellitus without complications

== ENCOUNTER → 2017-03-02 | Outpatient (REF) ==
[2017-03-02 09:55] LABS: CREATININE FOR GFR 1.67 MG/DL (0.70-1.30); GLOMERULAR FILTRATION RATE 41.4 (>35); POTASSIUM SERUM 4.3 MEQ/L (3.5-5.1)
== END ==
LOC: SKLAB3 08:00
PROVIDERS: ATTEND Internal Medicine
DX: E11.9 Type 2 diabetes mellitus without complications (principal)

== ENCOUNTER → 2017-03-20 | Outpatient (REF) | payer MEDICARE, OTHER ==
[2017-03-20 19:34] LABS: ALBUMIN/GLOBULIN RATIO 0.94 (1.00-1.93); BILIRUBIN,TOTAL 0.4 MG/DL (0.2-1.0); CALCIUM LEVEL 10.1 MG/DL (8.8-10.2); CREATININE FOR GFR 1.67 MG/DL (0.70-1.30); FREE T4 1.83 NG/DL (0.76-1.46); GLOMERULAR FILTRATION RATE 41.4 (>35); POTASSIUM SERUM 4.9 MEQ/L (3.5-5.1); TOTAL PROTEIN 6.2 GM/DL (6.4-8.2)
[2017-03-20 19:38] LABS: MEAN CORPUSCULAR HEMOGLOBIN 28.2 pg (27.0-33.0); MEAN CORPUSCULAR VOLUME 88.4 fl (80.0-96.0); RED CELL DISTRIBUTION WIDTH 13.6 % (11.5-14.5); WHITE BLOOD COUNT 5.7 K/mm3 (4.0-10.0)
== END ==
LOC: M SFHCADAM 14:37
PROVIDERS: ATTEND Physician Assistant
DX: N18.3 Chronic kidney disease, stage 3 (moderate) (principal); E03.9 Hypothyroidism, unspecified
CPT/HCPCS: 80053; 84439; 84443; 85027; G0463